=== PATIENT | male | born 1985 | race African-American/Black ===

== ENCOUNTER 2017-04-11 13:57 | Emergency (ER) | payer OTHER ==
[~2017-04-11] VITALS: Ht 172.7 cm; Wt 71.3 kg
--- NOTE | 2017-04-11 16:38 | REP ---
Clinical: Cough. Technique: PA and lateral. Comparison: None. Findings: Mediastinum and cardiac silhouette are normal. The left hemithorax is well-aerated and clear. Right lung base demonstrates presumed chronic tenting to the diaphragm, but subtle acute basilar atelectasis cannot be excluded. No prior examinations are available for comparison. No pleural effusion. No pneumothorax. Skeletal structures intact. Impression: Presumed chronic changes to the right diaphragmatic surface/lung base. Less likely acute atelectasis cannot be excluded. No prior exams for comparison. Signed by Molina Mcrae MD 04/11/2017 04:31 P
[2017-04-11 17:05] VITALS: BP 118/73
[2017-04-11] MEDS ORDERED: ZITHTAB PO (17:17)
== END 2017-04-11 17:23 | disposition home or self-care (01) ==
LOC: M ED 13:57
DX: J02.9 Acute pharyngitis, unspecified (principal); R53.83 Other fatigue; R51 Headache; Z87.09 Personal history of other diseases of the respiratory system; Z91.018 Allergy to other foods

== ENCOUNTER → 2017-05-06 | Outpatient (CLI) | payer OTHER ==
[~2017-05-06] MED LIST: ZITHTAB PO
--- NOTE | 2017-05-07 14:34 | REP ---
Clinical: Pain and chronic cough. Comparison: None. Findings: Chronic-appearing scarring and fiber atelectatic changes involving the basilar right middle lobe and right lower lobe with associated elevation and tethering of the right diaphragmatic surface is appreciated. These findings appear nonacute and without evidence for associated consolidation or nodule/mass. A small non solid noncalcified opacity measuring 10 mm is identified in the posterior basilar right lower lobe (axial image 40; sagittal image 32). No further consolidation, significant nodule or mass lesion. No pleural effusion/reaction. No pneumothorax. Tracheobronchial tree is patent. Mediastinal lymph nodes are nonspecific and pretracheal lymph nodes measure up to approximately 11 mm short axis diameter. Thoracic aorta, pulmonary vasculature and heart/pericardium are relatively normal. Surrounding musculoskeletal structures are intact. Impression: 1. 10 mm non solid noncalcified nodular opacity in the basilar right lower lobe warrants 3-month follow-up examination. Nonspecific mediastinal lymph nodes measure up to 11 mm short axis diameter. 2. Chronic-appearing scarring and fiber atelectatic changes at the right lung base. Signed by Molina Mcrae MD 05/07/2017 01:09 A
== END ==
LOC: M RAD 11:30
DX: J90 Pleural effusion, not elsewhere classified (principal); R91.8 Other nonspecific abnormal finding of lung field

== ENCOUNTER 2019-01-03 07:25 | Emergency (ER) | payer OTHER ==
[~2019-01-03] VITALS: Ht 167.6 cm; Wt 74.1 kg
[2019-01-03] MEDS ORDERED: NAPROXEN 250 MG TAB PO ONE (07:45)
[2019-01-03] MEDS ORDERED: ADACEL/BOOSTRIX VACCINE (DIPHTH/PERTUSS/ACELL/TETANUS)0.5ML SYR (90715) IM ONE (07:45)
[2019-01-03] MEDS ORDERED: NAPR-837 PO (08:51)
[2019-01-03] MEDS ORDERED: KEFL500C17 PO (08:51)
[2019-01-03 08:57] VITALS: BP 131/64
--- NOTE | 2019-01-03 09:15 | REP ---
LEFT KNEE, COMPLETE: 01/03/2019. Clinical history: Edema. Findings: Five views are provided. Twisp view shows no patellar subluxation. There is no definite suprapatellar effusion on the lateral view. There is no joint space narrowing, fracture, loose body or osteochondral defect. There is no avulsion. Impression: 1 No gross evidence for joint effusion, fracture, loose body or osteochondral defect. No focal bone lesion. Electronically Signed by Hermes Fraser MD 01/03/2019 08:34 A
== END 2019-01-03 09:09 | disposition home or self-care (01) ==
LOC: M ED 07:25
DX: L08.9 Local infection of the skin and subcutaneous tissue, unspecified (principal); S81.032A Puncture wound without foreign body, left knee, initial encounter; W45.0XXA Nail entering through skin, initial encounter; Y92.89 Other specified places as the place of occurrence of the external cause; Z91.018 Allergy to other foods